=== PATIENT | female | born 1980 | race African-American/Black ===

== ENCOUNTER 2017-02-09 08:32 | Emergency (ER) | payer MEDICAID, OTHER ==
[~2017-02-09] VITALS: Ht 170.2 cm; Wt 73.6 kg
[2017-02-09] MEDS ORDERED: LORazepam 1 MG TABLET PO ONE (09:30)
[2017-02-09] MEDS ORDERED: LORazepam 2 MG/ML VIAL IVP ONE (09:30)
[2017-02-09] MEDS ORDERED: CARBAMIDE PEROXIDE 6.5% 15 ML OTIC SOLUTION AS ONE (10:00)
[2017-02-09 10:19] VITALS: BP 125/89
[2017-02-09] MEDS ORDERED: ALBUTEROL SULFATE HFA 90 MCG/PUFF 8 GM INHALER IH ONE (10:45)
== END 2017-02-09 10:53 | disposition home or self-care (01) ==
LOC: EMS 08:33
DX: J06.9 Acute upper respiratory infection, unspecified (principal); J40 Bronchitis, not specified as acute or chronic; F41.9 Anxiety disorder, unspecified; J45.909 Unspecified asthma, uncomplicated
CPT/HCPCS: 94640; 99283; J3535

== ENCOUNTER 2017-12-29 17:08 | Emergency (ER) | payer MEDICAID ==
[~2017-12-29] VITALS: Ht 170.2 cm; Wt 72.7 kg
[2017-12-29 17:15] VITALS: BP 133/90
[2017-12-29] MEDS ORDERED: IBUP-2070 PO (17:22)
[2017-12-29] MEDS ORDERED: CYCL10 PO (17:22)
== END 2017-12-29 19:04 | disposition left against medical advice (07) ==
LOC: EMS 17:10
DX: M54.5 Low back pain (principal); M79.672 Pain in left foot; J45.909 Unspecified asthma, uncomplicated; F41.9 Anxiety disorder, unspecified; Z53.21 Procedure and treatment not carried out due to patient leaving prior to being seen by health care provider